=== PATIENT | female | born 1950 | race Caucasian/White ===

== ENCOUNTER 2023-06-18 08:56 | Outpatient (CLI) | payer MEDICARE, OTHER ==
[2023-06-18] MEDS ORDERED: Iopamidol 370 76% 100 ML VIAL ONE (10:03)
== END 2023-06-18 08:57 | disposition home or self-care (01) ==
LOC: CSHCT 08:56
PROVIDERS: ATTEND Family Medicine
DX: R10.9 Unspecified abdominal pain (principal)
CPT/HCPCS: 74178; 82565